=== PATIENT | male | born 1940 | race African-American/Black ===

== ENCOUNTER 2017-07-31 07:00 | Observation (INO) ==
[2017-07-31] MEDS ORDERED: ALUMINUM/MAGNES/SIMETH MAX STR 30 ML UDCUP PO PRN (09:35)
[2017-07-31] MEDS ORDERED: BENZTROPINE 2 MG/2 ML AMP IV PRN (09:35)
[2017-07-31] MEDS ORDERED: ALPRAZolam 0.25 MG TABLET PO PRN (09:35)
[2017-07-31] MEDS ORDERED: LOPERAMIDE 2 MG CAPSULE PO PRN ×2 (09:35)
[2017-07-31] MEDS ORDERED: guaiFENesin 200 MG/10 ML UDCUP PO PRN (09:35)
[2017-07-31] MEDS ORDERED: ONDANSETRON 4 MG/2 ML VIAL IV PRN (09:35)
[2017-07-31] MEDS ORDERED: MAGNESIUM HYDROXIDE SUSP 30 ML UDCUP PO PRN (09:35)
[2017-07-31] MEDS ORDERED: MYLANTA/LIDO VISC 2:1 300 ML BOTTLE SWISH/SWAL PRN (09:35)
[2017-07-31] MEDS ORDERED: traMADol 50 MG TABLET PO PRN (09:35)
[2017-07-31] MEDS ORDERED: MYLANTA/LIDO VISC 2:1 300 ML BOTTLE SWISH/SPIT PRN (09:35)
[2017-07-31] MEDS ORDERED: chlorproMAZINE INJ 25 MG in SODIUM CHLORIDE 0.9% 100 ML IV PRN (09:35)
[2017-07-31] MEDS ORDERED: PROMETHAZINE INJ 25 MG in SODIUM CHLORIDE 0.9% 50 ML IV PRN (09:35)
[2017-07-31] MEDS ORDERED: diphenhydrAMINE CAP 25 MG CAPSULE PO PRN (09:35)
[2017-07-31] MEDS ORDERED: chlorproMAZINE INJ 50 MG in SODIUM CHLORIDE 0.9% 100 ML IV PRN (09:35)
[2017-07-31] MEDS ORDERED: chlorproMAZINE 25 MG TABLET PO PRN (09:35)
[2017-07-31] MEDS ORDERED: TEMAZEPAM 7.5 MG CAPSULE PO PRN (09:35)
[2017-07-31] MEDS ORDERED: LACTULOSE 20 GM/30 ML UDCUP PO PRN (09:35)
[2017-07-31] MEDS ORDERED: ACETAMINOPHEN 325 MG TABLET PO PRN (09:35)
[2017-07-31] MEDS ORDERED: DEXAMETHASONE 10 MG/1 ML VIAL IV ONE (10:30)
[2017-07-31] MEDS ORDERED: DEXTROSE 5% IV ONE (11:30)
[2017-07-31] MEDS ORDERED: FLUOROURACIL IV ONE (11:30)
[2017-07-31] MEDS ORDERED: IRINOTECAN IV ONE (11:30)
[2017-07-31] MEDS ORDERED: LEUCOVORIN INJ 600 MG in DEXTROSE 5% 250 ML IV ONE (11:30)
[2017-07-31] MEDS ORDERED: PANITUMUMAB IV ONE (11:30)
[2017-07-31] MEDS ORDERED: SODIUM CHLORIDE 0.9% IV ONE (11:30)
[2017-07-31] MEDS: GRANISETRON 1 MG/1 ML VIAL IV SCH (11:38)
[2017-07-31] MEDS: FLUOROURACIL 1,500 MG in SODIUM CHLORIDE 0.9% 1,000 ML IV SCH (15:28)
[2017-08-01 09:12] LABS: Basophils % 0.2 % (0.0-0.8); Eosinophils % 0.2 % (0.00-10.9); Hematocrit 22.6 VOL% (42.0-52.0); Hemoglobin 7.1 GM/DL (14.0-18.0); Immature Granulocytes % 0.4 %; Immature Granulocytes Absolute 0.02 #; Lymphocytes # 0.8 10*3/uL (1.4-4.0); Lymphocytes % 15.3 % (21.2-54.2); Mean Corpuscular HGB Conc 31.4 GM/DL (32-36); Mean Corpuscular Hemoglobin 23 PG (27-34); Mean Corpuscular Volume 71.7 FL (87-102); Mean Platelet Volume 9.1 FL (9.6-12.0); Monocytes # 0.3 10*3/uL (0.11-0.8); Monocytes % 6.1 % (1.7-12.7); Neutrophils # 4.2 10*3/uL (1.4-7.4); Neutrophils % 77.8 % (38.7-73.9); Platelet Count 291 T/CUMM (130-400); Red Blood Count 3.15 MC/CUMM (3.8-5.5); Red Cell Distribution Width 18.3 % (9.3-17.3); White Blood Count 5.4 T/CUMM (4-12)
[2017-08-01] MEDS: GRANISETRON 1 MG/1 ML VIAL IV SCH (09:28)
[2017-08-01 09:33] LABS: Alanine Aminotransferase 10 U/L (16-61); Alkaline Phosphatase 137 U/L (45-117); Aspartate Amino Transferase 25 U/L (0-37); Bilirubin,Total < 0.39 MG/DL (0.2-1.0); Blood Urea Nitrogen 12 MG/DL (7-18); Calcium 7.8 MG/DL (8.5-10.1); Glucose 122 MG/DL (74-106); Osmolality,Calculated 273.8 MOS/KG (273-304); Potassium 3.4 MMOL/L (3.5-5.1); Sodium 137 MMOL/L (136-145); Total Protein 5.2 G/DL (6.4-8.3)
[2017-08-01] MEDS ORDERED: SODIUM CHLORIDE 0.9% 1,000 ML IV PRN (09:36)
[2017-08-01] MEDS: FLUOROURACIL 1,500 MG in SODIUM CHLORIDE 0.9% 1,000 ML IV SCH (14:40)
[2017-08-02 07:43] LABS: Basophils % 0.3 % (0.0-0.8); Eosinophils % 0.8 % (0.00-10.9); Hemoglobin 9.1 GM/DL (14.0-18.0); Immature Granulocytes % 0.3 %; Immature Granulocytes Absolute 0.01 #; Lymphocytes # 0.7 10*3/uL (1.4-4.0); Lymphocytes % 16.5 % (21.2-54.2); Mean Corpuscular HGB Conc 31.4 GM/DL (32-36); Mean Corpuscular Hemoglobin 24 PG (27-34); Mean Corpuscular Volume 75.9 FL (87-102); Mean Platelet Volume 9.2 FL (9.6-12.0); Monocytes # 0.2 10*3/uL (0.11-0.8); Monocytes % 3.8 % (1.7-12.7); Neutrophils # 3.1 10*3/uL (1.4-7.4); Neutrophils % 78.3 % (38.7-73.9); Platelet Count 304 T/CUMM (130-400); Red Blood Count 3.82 MC/CUMM (3.8-5.5); Red Cell Distribution Width 18.3 % (9.3-17.3)
[2017-08-02 08:32] VITALS: BP 155/88
[2017-08-02] MEDS: GRANISETRON 1 MG/1 ML VIAL IV SCH (09:31)
[2017-08-02] MEDS ORDERED: DEXAMETHASONE 10 MG/1 ML VIAL IV ONE (12:30)
[2017-08-02] MEDS ORDERED: HEPARIN LOCK FLUSH 500 UNIT/5 ML SYRINGE IV ONE (13:58)
== END 2017-08-02 14:56 | disposition home or self-care (01) ==
LOC: N.4E
PROVIDERS: ADMIT Specialist; ATTEND Specialist

== ENCOUNTER 2017-08-12 08:00 | Observation (INO) ==
[2017-08-12] MEDS ORDERED: ACETAMINOPHEN 325 MG TABLET PO PRN (08:55)
[2017-08-12] MEDS ORDERED: LACTULOSE 20 GM/30 ML UDCUP PO PRN (08:55)
[2017-08-12] MEDS ORDERED: ALUMINUM/MAGNES/SIMETH MAX STR 30 ML UDCUP PO PRN (08:55)
[2017-08-12] MEDS ORDERED: diphenhydrAMINE CAP 25 MG CAPSULE PO PRN (08:55)
[2017-08-12] MEDS ORDERED: ONDANSETRON 4 MG/2 ML VIAL IV PRN (08:55)
[2017-08-12] MEDS ORDERED: PROMETHAZINE INJ 25 MG in SODIUM CHLORIDE 0.9% 50 ML IV PRN (08:55)
[2017-08-12] MEDS ORDERED: MYLANTA/LIDO VISC 2:1 300 ML BOTTLE SWISH/SWAL PRN (08:55)
[2017-08-12] MEDS ORDERED: MYLANTA/LIDO VISC 2:1 300 ML BOTTLE SWISH/SPIT PRN (08:55)
[2017-08-12] MEDS ORDERED: MAGNESIUM HYDROXIDE SUSP 30 ML UDCUP PO PRN (08:55)
[2017-08-12] MEDS ORDERED: chlorproMAZINE INJ 25 MG in SODIUM CHLORIDE 0.9% 100 ML IV PRN (08:55)
[2017-08-12] MEDS ORDERED: traMADol 50 MG TABLET PO PRN (08:55)
[2017-08-12] MEDS ORDERED: chlorproMAZINE 25 MG TABLET PO PRN (08:55)
[2017-08-12] MEDS ORDERED: BENZTROPINE 2 MG/2 ML AMP IV PRN (08:55)
[2017-08-12] MEDS ORDERED: TEMAZEPAM 7.5 MG CAPSULE PO PRN (08:55)
[2017-08-12] MEDS ORDERED: LOPERAMIDE 2 MG CAPSULE PO PRN ×2 (08:55)
[2017-08-12] MEDS ORDERED: guaiFENesin 200 MG/10 ML UDCUP PO PRN (08:55)
[2017-08-12] MEDS ORDERED: ALPRAZolam 0.25 MG TABLET PO PRN (08:55)
[2017-08-12] MEDS ORDERED: chlorproMAZINE INJ 50 MG in SODIUM CHLORIDE 0.9% 100 ML IV PRN (08:55)
[2017-08-12] MEDS ORDERED: GRANISETRON 1 MG/1 ML VIAL IV SCH (09:00)
[2017-08-12 09:30] LABS: Eosinophils % 0.4 % (0.00-10.9); Hematocrit 30.1 VOL% (42.0-52.0); Hemoglobin 9.3 GM/DL (14.0-18.0); Immature Granulocytes % 0.8 %; Immature Granulocytes Absolute 0.02 #; Lymphocytes # 0.7 10*3/uL (1.4-4.0); Lymphocytes % 25.7 % (21.2-54.2); Mean Corpuscular HGB Conc 30.9 GM/DL (32-36); Mean Corpuscular Hemoglobin 24 PG (27-34); Mean Corpuscular Volume 76.8 FL (87-102); Monocytes # 0.2 10*3/uL (0.11-0.8); Monocytes % 8.3 % (1.7-12.7); Neutrophils # 1.6 10*3/uL (1.4-7.4); Neutrophils % 64.8 % (38.7-73.9); Platelet Count 228 T/CUMM (130-400); Red Blood Count 3.92 MC/CUMM (3.8-5.5); Red Cell Distribution Width 18.2 % (9.3-17.3); White Blood Count 2.5 T/CUMM (4-12)
[2017-08-12 10:13] LABS: Alanine Aminotransferase 15 U/L (16-61); Albumin 2.9 G/DL (3.4-5.0); Alkaline Phosphatase 123 U/L (45-117); Aspartate Amino Transferase 16 U/L (0-37); Bilirubin,Total < 0.39 MG/DL (0.2-1.0); Blood Urea Nitrogen 9 MG/DL (7-18); Calcium 8.2 MG/DL (8.5-10.1); Glucose 78 MG/DL (74-106); Osmolality,Calculated 272.7 MOS/KG (273-304); Potassium 3.1 MMOL/L (3.5-5.1); Sodium 138 MMOL/L (136-145); Total Protein 6.7 G/DL (6.4-8.3); Uric Acid 2.5 MG/DL (3.5-7.2)
[2017-08-12] MEDS ORDERED: DEXTROSE 5% IV ONE (11:00)
[2017-08-12] MEDS ORDERED: PANITUMUMAB 400 MG in SODIUM CHLORIDE 0.9% 100 ML IV ONE (11:00)
[2017-08-12] MEDS ORDERED: IRINOTECAN IV ONE (11:00)
[2017-08-12] MEDS ORDERED: LEUCOVORIN INJ 600 MG in DEXTROSE 5% 250 ML IV ONE (11:00)
[2017-08-12] MEDS ORDERED: FLUOROURACIL IV ONE (11:00)
[2017-08-12] MEDS ORDERED: DEXAMETHASONE 10 MG/1 ML VIAL IV SCH (11:00)
[2017-08-12] MEDS: POTASSIUM CHLORIDE 20 MEQ TABLET PO SCH ×2 (11:02→20:22)
[2017-08-12] MEDS: MAGNESIUM CHLORIDE 64 MG TABLET PO SCH ×2 (11:02→20:22)
[2017-08-12] MEDS: FLUOROURACIL 1,500 MG in SODIUM CHLORIDE 0.9% 1,000 ML IV SCH (15:41)
[2017-08-12 21:07] LABS: Apearance,Urine CLEAR (Clear); Bilirubin,Urine Negative (Negative); Blood, Urine Negative (Negative); Glucose,Urine (UA) Negative (Negative); Ketones,Urine Negative (Negative); Mucus,Urine Occasional /LPF (Occasional); Nitrite,Urine Negative (Negative); Protein,Urine Negative; Urine Color Yellow (Yellow); Urine Specific Gravity 1.008 (1.001-1.035); Urine Urobilinogen < 2.0 EU/DL (0.2-1.0)
[2017-08-13 04:58] LABS: Hemoglobin 8.2 GM/DL (14.0-18.0); Immature Granulocytes % 0.4 %; Immature Granulocytes Absolute 0.01 #; Lymphocytes # 0.7 10*3/uL (1.4-4.0); Lymphocytes % 25.1 % (21.2-54.2); Mean Corpuscular HGB Conc 31.5 GM/DL (32-36); Mean Corpuscular Hemoglobin 24 PG (27-34); Mean Corpuscular Volume 76.7 FL (87-102); Mean Platelet Volume 8.7 FL (9.6-12.0); Monocytes # 0.3 10*3/uL (0.11-0.8); Monocytes % 12.5 % (1.7-12.7); Neutrophils # 1.6 10*3/uL (1.4-7.4); Platelet Count 212 T/CUMM (130-400); Red Blood Count 3.39 MC/CUMM (3.8-5.5); Red Cell Distribution Width 17.8 % (9.3-17.3); White Blood Count 2.6 T/CUMM (4-12)
[2017-08-13 05:21] LABS: Band Neutrophils 2 % (0-10); Lymphocytes 24 % (20-55); Microcytosis 1+; Segmented Neutrophils 66 % (50-85); Total Cells Counted 100
[2017-08-13 05:22] LABS: Hypochromasia 1+; Ovalocytes Slight; Platelet Estimate Adequate
[2017-08-13 05:30] LABS: Albumin 2.4 G/DL (3.4-5.0); Bilirubin,Total 0.4 MG/DL (0.2-1.0); Calcium 7.9 MG/DL (8.5-10.1); Osmolality,Calculated 275.5 MOS/KG (273-304); Potassium 3.2 MMOL/L (3.5-5.1); Total Protein 5.9 G/DL (6.4-8.3)
[2017-08-13] MEDS: MAGNESIUM CHLORIDE 64 MG TABLET PO SCH ×2 (08:36→20:02)
[2017-08-13] MEDS: POTASSIUM CHLORIDE 20 MEQ TABLET PO SCH ×2 (08:36→20:04)
[2017-08-13] MEDS: GRANISETRON 1 MG/1 ML VIAL IV SCH (08:37)
[2017-08-13] MEDS: FLUOROURACIL 1,500 MG in SODIUM CHLORIDE 0.9% 1,000 ML IV SCH (13:23)
[2017-08-14] MEDS: GRANISETRON 1 MG/1 ML VIAL IV SCH (09:36)
[2017-08-14] MEDS: MAGNESIUM CHLORIDE 64 MG TABLET PO SCH (09:36)
[2017-08-14] MEDS: POTASSIUM CHLORIDE 20 MEQ TABLET PO SCH (09:36)
[2017-08-14] MEDS ORDERED: HEPARIN LOCK FLUSH 500 UNIT/5 ML SYRINGE IV PRN (11:36)
[2017-08-14 12:35] VITALS: BP 134/72
== END 2017-08-14 12:30 | disposition home or self-care (01) ==
LOC: N.4E
PROVIDERS: ADMIT Specialist; ATTEND Specialist

== ENCOUNTER 2017-08-26 07:00 | Observation (INO) ==
[2017-08-26] MEDS ORDERED: ALPRAZolam 0.25 MG TABLET PO PRN (08:53)
[2017-08-26] MEDS ORDERED: traMADol 50 MG TABLET PO PRN (08:53)
[2017-08-26] MEDS ORDERED: chlorproMAZINE INJ 50 MG in SODIUM CHLORIDE 0.9% 100 ML IV PRN (08:53)
[2017-08-26] MEDS ORDERED: diphenhydrAMINE CAP 25 MG CAPSULE PO PRN (08:53)
[2017-08-26] MEDS ORDERED: MYLANTA/LIDO VISC 2:1 300 ML BOTTLE SWISH/SPIT PRN (08:53)
[2017-08-26] MEDS ORDERED: chlorproMAZINE INJ 25 MG in SODIUM CHLORIDE 0.9% 100 ML IV PRN (08:53)
[2017-08-26] MEDS ORDERED: MYLANTA/LIDO VISC 2:1 300 ML BOTTLE SWISH/SWAL PRN (08:53)
[2017-08-26] MEDS ORDERED: ACETAMINOPHEN 325 MG TABLET PO PRN (08:53)
[2017-08-26] MEDS ORDERED: ALUMINUM/MAGNES/SIMETH MAX STR 30 ML UDCUP PO PRN (08:53)
[2017-08-26] MEDS ORDERED: MAGNESIUM HYDROXIDE SUSP 30 ML UDCUP PO PRN (08:53)
[2017-08-26] MEDS ORDERED: TEMAZEPAM 7.5 MG CAPSULE PO PRN (08:53)
[2017-08-26] MEDS ORDERED: chlorproMAZINE 25 MG TABLET PO PRN (08:53)
[2017-08-26] MEDS ORDERED: LOPERAMIDE 2 MG CAPSULE PO PRN ×2 (08:53)
[2017-08-26] MEDS ORDERED: ONDANSETRON 4 MG/2 ML VIAL IV PRN (08:53)
[2017-08-26] MEDS ORDERED: LACTULOSE 20 GM/30 ML UDCUP PO PRN (08:53)
[2017-08-26] MEDS ORDERED: BENZTROPINE 2 MG/2 ML AMP IV PRN (08:53)
[2017-08-26] MEDS ORDERED: PROMETHAZINE INJ 25 MG in SODIUM CHLORIDE 0.9% 50 ML IV PRN (08:53)
[2017-08-26] MEDS ORDERED: guaiFENesin 200 MG/10 ML UDCUP PO PRN (08:53)
[2017-08-26 09:01] LABS: Basophils % 0.4 % (0.0-0.8); Eosinophils % 0.4 % (0.00-10.9); Hematocrit 28.4 VOL% (42.0-52.0); Hemoglobin 8.9 GM/DL (14.0-18.0); Immature Granulocytes % 0.7 %; Immature Granulocytes Absolute 0.02 #; Lymphocytes # 0.9 10*3/uL (1.4-4.0); Lymphocytes % 33.1 % (21.2-54.2); Mean Corpuscular HGB Conc 31.3 GM/DL (32-36); Mean Corpuscular Hemoglobin 24 PG (27-34); Mean Corpuscular Volume 77.2 FL (87-102); Mean Platelet Volume 8.3 FL (9.6-12.0); Monocytes # 0.6 10*3/uL (0.11-0.8); Monocytes % 20.3 % (1.7-12.7); Neutrophils # 1.3 10*3/uL (1.4-7.4); Neutrophils % 45.1 % (38.7-73.9); Platelet Count 218 T/CUMM (130-400); Red Blood Count 3.68 MC/CUMM (3.8-5.5); Red Cell Distribution Width 18.8 % (9.3-17.3); White Blood Count 2.8 T/CUMM (4-12)
[2017-08-26 09:17] LABS: Alanine Aminotransferase 10 U/L (16-61); Alkaline Phosphatase 92 U/L (45-117); Aspartate Amino Transferase 15 U/L (0-37); Bilirubin,Total < 0.39 MG/DL (0.2-1.0); Blood Urea Nitrogen 7 MG/DL (7-18); Calcium 9.1 MG/DL (8.5-10.1); Glucose 98 MG/DL (74-106); Osmolality,Calculated 274.5 MOS/KG (273-304); Sodium 139 MMOL/L (136-145); Total Protein 6.7 G/DL (6.4-8.3); Uric Acid 2.9 MG/DL (3.5-7.2)
[2017-08-26 09:19] LABS: Band Neutrophils 2 % (0-10); Eosinophils 1 % (0-10); Hypochromasia 1+; Lymphocytes 37 % (20-55); Segmented Neutrophils 44 % (50-85); Total Cells Counted 100
[2017-08-26 09:20] LABS: Microcytosis 1+; Ovalocytes Slight; Polychromasia Slight; Potassium 2.3 MMOL/L (3.5-5.1)
[2017-08-26 09:21] LABS: Platelet Estimate Normal
[2017-08-26] MEDS ORDERED: IRINOTECAN IV ONE (09:30)
[2017-08-26] MEDS ORDERED: LEUCOVORIN INJ 600 MG in DEXTROSE 5% 250 ML IV ONE (09:30)
[2017-08-26] MEDS ORDERED: DEXTROSE 5% IV ONE (09:30)
[2017-08-26] MEDS ORDERED: FLUOROURACIL IV ONE (09:30)
[2017-08-26] MEDS ORDERED: DEXAMETHASONE 10 MG/1 ML VIAL IV SCH (09:30)
[2017-08-26] MEDS ORDERED: PANITUMUMAB 400 MG in SODIUM CHLORIDE 0.9% 100 ML IV ONE (09:30)
[2017-08-26] MEDS: GRANISETRON 1 MG/1 ML VIAL IV SCH (10:12)
[2017-08-26] MEDS: MAGNESIUM CHLORIDE 64 MG TABLET PO SCH ×2 (10:14→21:38)
[2017-08-26] MEDS: POTASSIUM CHLORIDE 20 MEQ TABLET PO SCH ×2 (10:14→21:39)
[2017-08-26] MEDS: FLUOROURACIL 1,500 MG in SODIUM CHLORIDE 0.9% 1,000 ML IV SCH (14:50)
[2017-08-27 00:18] LABS: Apearance,Urine CLEAR (Clear); Bilirubin,Urine Negative (Negative); Blood, Urine Negative (Negative); Glucose,Urine (UA) Negative (Negative); Ketones,Urine Negative (Negative); Mucus,Urine Occasional /LPF (Occasional); Nitrite,Urine Negative (Negative); Protein,Urine Negative; RBC,Urine 1 /HPF (0-4); Squamous Epithelial Cell,Urine Occasional /HPF (0-10); Urine Color Yellow (Yellow); Urine Urobilinogen < 2.0 EU/DL (0.2-1.0); WBC,Urine <1 /HPF (0-6)
[2017-08-27 04:44] LABS: Hematocrit 25.7 VOL% (42.0-52.0); Hemoglobin 8.2 GM/DL (14.0-18.0); Immature Granulocytes % 0.4 %; Immature Granulocytes Absolute 0.01 #; Lymphocytes # 0.7 10*3/uL (1.4-4.0); Lymphocytes % 25.1 % (21.2-54.2); Mean Corpuscular HGB Conc 31.9 GM/DL (32-36); Mean Corpuscular Hemoglobin 24 PG (27-34); Mean Corpuscular Volume 76.5 FL (87-102); Mean Platelet Volume 8.7 FL (9.6-12.0); Monocytes # 0.5 10*3/uL (0.11-0.8); Monocytes % 17.8 % (1.7-12.7); Neutrophils # 1.6 10*3/uL (1.4-7.4); Neutrophils % 56.7 % (38.7-73.9); Platelet Count 177 T/CUMM (130-400); Red Blood Count 3.36 MC/CUMM (3.8-5.5); Red Cell Distribution Width 18.6 % (9.3-17.3); White Blood Count 2.8 T/CUMM (4-12)
[2017-08-27 05:16] LABS: Band Neutrophils 2 % (0-10); Giant Platelets Few; Hypochromasia 1+; Lymphocytes 28 % (20-55); Ovalocytes Slight; Platelet Estimate Normal; Segmented Neutrophils 57 % (50-85); Total Cells Counted 100
[2017-08-27 05:17] LABS: Microcytosis 1+
[2017-08-27 05:30] LABS: Calcium 8.3 MG/DL (8.5-10.1); Osmolality,Calculated 276.5 MOS/KG (273-304); Potassium 2.8 MMOL/L (3.5-5.1)
[2017-08-27] MEDS: MAGNESIUM CHLORIDE 64 MG TABLET PO SCH ×2 (08:43→20:35)
[2017-08-27] MEDS: POTASSIUM CHLORIDE 20 MEQ TABLET PO SCH ×2 (08:43→20:35)
[2017-08-27] MEDS: GRANISETRON 1 MG/1 ML VIAL IV SCH (08:43)
[2017-08-27] MEDS ORDERED: SODIUM CHLORIDE 0.9% 1,000 ML IV PRN (08:47)
[2017-08-27] MEDS: FLUOROURACIL 1,500 MG in SODIUM CHLORIDE 0.9% 1,000 ML IV SCH (13:16)
[2017-08-28 05:36] LABS: Basophils % 0.5 % (0.0-0.8); Hematocrit 33.7 VOL% (42.0-52.0); Hemoglobin 11.2 GM/DL (14.0-18.0); Immature Granulocytes % 0.5 %; Immature Granulocytes Absolute 0.01 #; Lymphocytes # 0.9 10*3/uL (1.4-4.0); Lymphocytes % 44.4 % (21.2-54.2); Mean Corpuscular HGB Conc 33.2 GM/DL (32-36); Mean Corpuscular Hemoglobin 26 PG (27-34); Mean Corpuscular Volume 77.3 FL (87-102); Mean Platelet Volume 8.7 FL (9.6-12.0); Monocytes # 0.2 10*3/uL (0.11-0.8); Monocytes % 10.1 % (1.7-12.7); Neutrophils # 0.9 10*3/uL (1.4-7.4); Neutrophils % 43.5 % (38.7-73.9); Platelet Count 181 T/CUMM (130-400); Red Blood Count 4.36 MC/CUMM (3.8-5.5); White Blood Count 2.1 T/CUMM (4-12)
[2017-08-28 06:07] LABS: Albumin 2.3 G/DL (3.4-5.0); Bilirubin,Total 1.1 MG/DL (0.2-1.0); Calcium 8.3 MG/DL (8.5-10.1); Potassium 2.6 MMOL/L (3.5-5.1); Total Protein 5.7 G/DL (6.4-8.3)
[2017-08-28 06:08] LABS: Hypochromasia 1+; Microcytosis 1+; Ovalocytes Slight; Platelet Estimate Adequate; Target Cells Slight
[2017-08-28] MEDS: POTASSIUM CHLORIDE 20 MEQ TABLET PO SCH (08:26)
[2017-08-28] MEDS: MAGNESIUM CHLORIDE 64 MG TABLET PO SCH (08:26)
[2017-08-28] MEDS: GRANISETRON 1 MG/1 ML VIAL IV SCH (08:26)
[2017-08-28 08:54] VITALS: BP 149/84
[2017-08-28] MEDS ORDERED: HEPARIN LOCK FLUSH 500 UNIT/5 ML SYRINGE IV PRN (10:08)
== END 2017-08-28 12:20 | disposition home or self-care (01) ==
LOC: N.4E
PROVIDERS: ADMIT Specialist; ATTEND Specialist

== ENCOUNTER 2017-09-16 07:00 | Observation (INO) ==
[2017-09-16 08:22] LABS: Basophils % 0.6 % (0.0-0.8); Eosinophils # 0.1 10*3/uL (0.0-0.87); Hematocrit 32.4 VOL% (42.0-52.0); Hemoglobin 10.8 GM/DL (14.0-18.0); Immature Granulocytes % 5.6 %; Immature Granulocytes Absolute 0.29 #; Lymphocytes # 1.4 10*3/uL (1.4-4.0); Lymphocytes % 26.7 % (21.2-54.2); Mean Corpuscular HGB Conc 33.3 GM/DL (32-36); Mean Corpuscular Hemoglobin 27 PG (27-34); Mean Corpuscular Volume 79.8 FL (87-102); Mean Platelet Volume 8.7 FL (9.6-12.0); Neutrophils # 2.4 10*3/uL (1.4-7.4); Neutrophils % 47.1 % (38.7-73.9); Platelet Count 205 T/CUMM (130-400); Red Blood Count 4.06 MC/CUMM (3.8-5.5); Red Cell Distribution Width 20.3 % (9.3-17.3); White Blood Count 5.2 T/CUMM (4-12)
[2017-09-16 08:49] LABS: Alanine Aminotransferase 19 U/L (16-61); Alkaline Phosphatase 97 U/L (45-117); Aspartate Amino Transferase 16 U/L (0-37); Bilirubin,Total < 0.39 MG/DL (0.2-1.0); Blood Urea Nitrogen 9 MG/DL (7-18); Calcium 8.6 MG/DL (8.5-10.1); Glucose 72 MG/DL (74-106); Osmolality,Calculated 274.5 MOS/KG (273-304); Potassium 3.9 MMOL/L (3.5-5.1); Sodium 139 MMOL/L (136-145); Total Protein 6.6 G/DL (6.4-8.3)
[2017-09-16 08:50] LABS: Eosinophils 1 % (0-10); Lymphocytes 27 % (20-55); Segmented Neutrophils 59 % (50-85); Total Cells Counted 100
[2017-09-16 08:51] LABS: Hypochromasia 1+; Microcytosis 1+; Ovalocytes Slight
[2017-09-16 08:53] LABS: Platelet Estimate Normal
[2017-09-16] MEDS ORDERED: MYLANTA/LIDO VISC 2:1 300 ML BOTTLE SWISH/SWAL PRN (09:54)
[2017-09-16] MEDS ORDERED: PROMETHAZINE INJ 25 MG in SODIUM CHLORIDE 0.9% 50 ML IV PRN (09:54)
[2017-09-16] MEDS ORDERED: ONDANSETRON 4 MG/2 ML VIAL IV PRN (09:54)
[2017-09-16] MEDS ORDERED: BENZTROPINE 2 MG/2 ML AMP IV PRN (09:54)
[2017-09-16] MEDS ORDERED: LACTULOSE 20 GM/30 ML UDCUP PO PRN (09:54)
[2017-09-16] MEDS ORDERED: ALUMINUM/MAGNES/SIMETH MAX STR 30 ML UDCUP PO PRN (09:54)
[2017-09-16] MEDS ORDERED: MAGNESIUM HYDROXIDE SUSP 30 ML UDCUP PO PRN (09:54)
[2017-09-16] MEDS ORDERED: MYLANTA/LIDO VISC 2:1 300 ML BOTTLE SWISH/SPIT PRN (09:54)
[2017-09-16] MEDS ORDERED: ACETAMINOPHEN 325 MG TABLET PO PRN (09:54)
[2017-09-16] MEDS ORDERED: LOPERAMIDE 2 MG CAPSULE PO PRN ×2 (09:54)
[2017-09-16] MEDS ORDERED: guaiFENesin 200 MG/10 ML UDCUP PO PRN (09:54)
[2017-09-16] MEDS ORDERED: TEMAZEPAM 7.5 MG CAPSULE PO PRN (09:54)
[2017-09-16] MEDS ORDERED: ALPRAZolam 0.25 MG TABLET PO PRN (09:54)
[2017-09-16] MEDS ORDERED: traMADol 50 MG TABLET PO PRN (09:54)
[2017-09-16] MEDS ORDERED: chlorproMAZINE INJ 50 MG in SODIUM CHLORIDE 0.9% 100 ML IV PRN (09:54)
[2017-09-16] MEDS ORDERED: diphenhydrAMINE CAP 25 MG CAPSULE PO PRN (09:54)
[2017-09-16] MEDS ORDERED: chlorproMAZINE 25 MG TABLET PO PRN (09:54)
[2017-09-16] MEDS ORDERED: chlorproMAZINE INJ 25 MG in SODIUM CHLORIDE 0.9% 100 ML IV PRN (09:54)
[2017-09-16] MEDS ORDERED: LEUCOVORIN INJ 600 MG in DEXTROSE 5% 250 ML IV ONE (10:00)
[2017-09-16] MEDS ORDERED: DEXTROSE 5% IV ONE (10:00)
[2017-09-16] MEDS ORDERED: DEXAMETHASONE 10 MG/1 ML VIAL IV SCH (10:00)
[2017-09-16] MEDS ORDERED: FLUOROURACIL IV ONE (10:00)
[2017-09-16] MEDS ORDERED: IRINOTECAN IV ONE (10:00)
[2017-09-16] MEDS ORDERED: PANITUMUMAB 400 MG in SODIUM CHLORIDE 0.9% 100 ML IV ONE (10:00)
[2017-09-16] MEDS ORDERED: DEXAMETHASONE 10 MG/1 ML VIAL IV ONE (10:30)
[2017-09-16] MEDS: GRANISETRON 1 MG/1 ML VIAL IV SCH (10:32)
[2017-09-16 13:50] LABS: Apearance,Urine CLEAR (Clear); Bilirubin,Urine Negative (Negative); Blood, Urine Negative (Negative); Glucose,Urine (UA) Negative (Negative); Ketones,Urine Negative (Negative); Mucus,Urine Occasional /LPF (Occasional); Nitrite,Urine Negative (Negative); Protein,Urine Negative; RBC,Urine <1 /HPF (0-4); Urine Color Straw (Yellow); Urine Specific Gravity 1.009 (1.001-1.035); Urine Urobilinogen < 2.0 EU/DL (0.2-1.0); WBC,Urine <1 /HPF (0-6)
[2017-09-16] MEDS: FLUOROURACIL 1,500 MG in SODIUM CHLORIDE 0.9% 1,000 ML IV SCH (14:33)
[2017-09-16] MEDS: POTASSIUM CHLORIDE 20 MEQ TABLET PO SCH (21:02)
[2017-09-16] MEDS: MAGNESIUM CHLORIDE 64 MG TABLET PO SCH (21:02)
[2017-09-17] MEDS: MAGNESIUM CHLORIDE 64 MG TABLET PO SCH ×2 (08:24→20:22)
[2017-09-17] MEDS: FERROUS SULFATE 325 MG TABLET PO SCH (08:24)
[2017-09-17] MEDS: POTASSIUM CHLORIDE 20 MEQ TABLET PO SCH ×2 (08:24→20:22)
[2017-09-17] MEDS: GRANISETRON 1 MG/1 ML VIAL IV SCH (08:24)
[2017-09-17] MEDS: FLUOROURACIL 1,500 MG in SODIUM CHLORIDE 0.9% 1,000 ML IV SCH (12:44)
[2017-09-18 05:02] LABS: Basophils % 0.3 % (0.0-0.8); Eosinophils # 0.1 10*3/uL (0.0-0.87); Hematocrit 32.1 VOL% (42.0-52.0); Hemoglobin 10.5 GM/DL (14.0-18.0); Immature Granulocytes % 0.5 %; Immature Granulocytes Absolute 0.03 #; Lymphocytes # 1.1 10*3/uL (1.4-4.0); Mean Corpuscular HGB Conc 32.7 GM/DL (32-36); Mean Corpuscular Hemoglobin 26 PG (27-34); Mean Corpuscular Volume 78.9 FL (87-102); Mean Platelet Volume 8.9 FL (9.6-12.0); Monocytes # 0.7 10*3/uL (0.11-0.8); Monocytes % 11.5 % (1.7-12.7); Neutrophils # 4.1 10*3/uL (1.4-7.4); Neutrophils % 68.7 % (38.7-73.9); Platelet Count 178 T/CUMM (130-400); Red Blood Count 4.07 MC/CUMM (3.8-5.5); Red Cell Distribution Width 20.3 % (9.3-17.3)
[2017-09-18] MEDS: MAGNESIUM CHLORIDE 64 MG TABLET PO SCH (08:25)
[2017-09-18] MEDS: GRANISETRON 1 MG/1 ML VIAL IV SCH (08:25)
[2017-09-18] MEDS: POTASSIUM CHLORIDE 20 MEQ TABLET PO SCH (08:25)
[2017-09-18] MEDS: FERROUS SULFATE 325 MG TABLET PO SCH (08:25)
[2017-09-18] MEDS ORDERED: HEPARIN LOCK FLUSH 500 UNIT/5 ML SYRINGE IV ONE (10:35)
[2017-09-18 12:17] VITALS: BP 109/60
== END 2017-09-18 13:05 | disposition home or self-care (01) ==
LOC: N.4E
PROVIDERS: ADMIT Specialist; ATTEND Specialist

== ENCOUNTER 2017-10-06 06:49 | Observation (INO) ==
[2017-10-06 08:05] LABS: Basophils % 0.3 % (0.0-0.8); Eosinophils # 0.1 10*3/uL (0.0-0.87); Eosinophils % 2.1 % (0.00-10.9); Hematocrit 30.7 VOL% (42.0-52.0); Hemoglobin 10.3 GM/DL (14.0-18.0); Immature Granulocytes % 1.2 %; Immature Granulocytes Absolute 0.04 #; Lymphocytes # 0.8 10*3/uL (1.4-4.0); Lymphocytes % 24.9 % (21.2-54.2); Mean Corpuscular HGB Conc 33.6 GM/DL (32-36); Mean Corpuscular Hemoglobin 27 PG (27-34); Mean Corpuscular Volume 80.6 FL (87-102); Mean Platelet Volume 8.6 FL (9.6-12.0); Monocytes % 29.4 % (1.7-12.7); Neutrophils # 1.4 10*3/uL (1.4-7.4); Neutrophils % 42.1 % (38.7-73.9); Platelet Count 170 T/CUMM (130-400); Red Blood Count 3.81 MC/CUMM (3.8-5.5); Red Cell Distribution Width 20.8 % (9.3-17.3); White Blood Count 3.3 T/CUMM (4-12)
[2017-10-06 08:26] LABS: Band Neutrophils 13 % (0-10); Hypochromasia 1+; Lymphocytes 16 % (20-55); Macrocytosis 1+; Platelet Estimate Adequate; Polychromasia Slight; Segmented Neutrophils 46 % (50-85); Target Cells 1+; Total Cells Counted 100
[2017-10-06 08:38] LABS: Alanine Aminotransferase 25 U/L (16-61); Albumin 2.8 G/DL (3.4-5.0); Alkaline Phosphatase 96 U/L (45-117); Aspartate Amino Transferase 21 U/L (0-37); Bilirubin,Total < 0.39 MG/DL (0.2-1.0); Blood Urea Nitrogen 6 MG/DL (7-18); Calcium 8.6 MG/DL (8.5-10.1); Glucose 87 MG/DL (74-106); Osmolality,Calculated 277.3 MOS/KG (273-304); Potassium 3.6 MMOL/L (3.5-5.1); Sodium 141 MMOL/L (136-145); Total Protein 6.1 G/DL (6.4-8.3)
[2017-10-06] MEDS ORDERED: chlorproMAZINE INJ 50 MG in SODIUM CHLORIDE 0.9% 100 ML IV PRN (09:31)
[2017-10-06] MEDS ORDERED: MAGNESIUM HYDROXIDE SUSP 30 ML UDCUP PO PRN (09:31)
[2017-10-06] MEDS ORDERED: ALUMINUM/MAGNES/SIMETH MAX STR 30 ML UDCUP PO PRN (09:31)
[2017-10-06] MEDS ORDERED: MYLANTA/LIDO VISC 2:1 300 ML BOTTLE SWISH/SWAL PRN (09:31)
[2017-10-06] MEDS ORDERED: PROMETHAZINE INJ 25 MG in SODIUM CHLORIDE 0.9% 50 ML IV PRN (09:31)
[2017-10-06] MEDS ORDERED: MYLANTA/LIDO VISC 2:1 300 ML BOTTLE SWISH/SPIT PRN (09:31)
[2017-10-06] MEDS ORDERED: BENZTROPINE 2 MG/2 ML AMP IV PRN (09:31)
[2017-10-06] MEDS ORDERED: traMADol 50 MG TABLET PO PRN (09:31)
[2017-10-06] MEDS ORDERED: LOPERAMIDE 2 MG CAPSULE PO PRN ×2 (09:31)
[2017-10-06] MEDS ORDERED: chlorproMAZINE 25 MG TABLET PO PRN (09:31)
[2017-10-06] MEDS ORDERED: diphenhydrAMINE CAP 25 MG CAPSULE PO PRN (09:31)
[2017-10-06] MEDS ORDERED: LACTULOSE 20 GM/30 ML UDCUP PO PRN (09:31)
[2017-10-06] MEDS ORDERED: ALPRAZolam 0.25 MG TABLET PO PRN (09:31)
[2017-10-06] MEDS ORDERED: ONDANSETRON 4 MG/2 ML VIAL IV PRN (09:31)
[2017-10-06] MEDS ORDERED: ACETAMINOPHEN 325 MG TABLET PO PRN (09:31)
[2017-10-06] MEDS ORDERED: guaiFENesin 200 MG/10 ML UDCUP PO PRN (09:31)
[2017-10-06] MEDS ORDERED: chlorproMAZINE INJ 25 MG in SODIUM CHLORIDE 0.9% 100 ML IV PRN (09:31)
[2017-10-06] MEDS ORDERED: TEMAZEPAM 7.5 MG CAPSULE PO PRN (09:31)
[2017-10-06] MEDS ORDERED: DEXAMETHASONE 10 MG/1 ML VIAL IV ONE (16:00)
[2017-10-06] MEDS ORDERED: GRANISETRON 1 MG/1 ML VIAL IV ONE (16:00)
[2017-10-06] MEDS ORDERED: DEXTROSE 5% IV ONE (16:30)
[2017-10-06] MEDS ORDERED: FLUOROURACIL IV ONE (16:30)
[2017-10-06] MEDS ORDERED: PANITUMUMAB IV ONE (16:30)
[2017-10-06] MEDS ORDERED: SODIUM CHLORIDE 0.9% IV ONE (16:30)
[2017-10-06] MEDS ORDERED: LEUCOVORIN INJ 600 MG in DEXTROSE 5% 250 ML IV ONE (16:30)
[2017-10-06] MEDS ORDERED: IRINOTECAN IV ONE (16:30)
[2017-10-06] MEDS ORDERED: FLUOROURACIL 1,500 MG in SODIUM CHLORIDE 0.9% 1,000 ML IV SCH (18:00)
[2017-10-06] MEDS: POTASSIUM CHLORIDE 20 MEQ TABLET PO SCH (21:01)
[2017-10-06] MEDS: MAGNESIUM CHLORIDE 64 MG TABLET PO SCH (21:01)
[2017-10-07] MEDS: POTASSIUM CHLORIDE 20 MEQ TABLET PO SCH ×2 (09:53→20:39)
[2017-10-07] MEDS: MAGNESIUM CHLORIDE 64 MG TABLET PO SCH ×2 (09:53→20:38)
[2017-10-07] MEDS: FERROUS SULFATE 325 MG TABLET PO SCH (09:53)
[2017-10-08 08:16] VITALS: BP 148/82
[2017-10-08] MEDS: POTASSIUM CHLORIDE 20 MEQ TABLET PO SCH (08:16)
[2017-10-08] MEDS: MAGNESIUM CHLORIDE 64 MG TABLET PO SCH (08:16)
[2017-10-08] MEDS: FERROUS SULFATE 325 MG TABLET PO SCH (08:16)
[2017-10-08] MEDS ORDERED: PEGFILGRASTIM 6 MG/0.6 ML SYRINGE SUBCUT ONE (08:19)
[2017-10-08] MEDS ORDERED: HEPARIN LOCK FLUSH 500 UNIT/5 ML SYRINGE IV ONE (08:51)
== END 2017-10-08 10:25 | disposition home or self-care (01) ==
LOC: N.4E 06:49 → N.4EOUT 06:49 → N.4E 06:57
PROVIDERS: ADMIT Specialist; ATTEND Specialist

== ENCOUNTER 2017-10-27 06:54 | Observation (INO) ==
[2017-10-27 08:14] LABS: Basophils % 0.3 % (0.0-0.8); Eosinophils % 0.1 % (0.00-10.9); Hematocrit 39.7 VOL% (42.0-52.0); Hemoglobin 12.9 GM/DL (14.0-18.0); Immature Granulocytes % 3.1 %; Immature Granulocytes Absolute 0.31 #; Lymphocytes # 1.3 10*3/uL (1.4-4.0); Lymphocytes % 12.7 % (21.2-54.2); Mean Corpuscular HGB Conc 32.5 GM/DL (32-36); Mean Corpuscular Hemoglobin 28 PG (27-34); Mean Corpuscular Volume 86.5 FL (87-102); Mean Platelet Volume 9.2 FL (9.6-12.0); Monocytes # 0.7 10*3/uL (0.11-0.8); Monocytes % 7.2 % (1.7-12.7); Neutrophils # 7.5 10*3/uL (1.4-7.4); Neutrophils % 76.6 % (38.7-73.9); Platelet Count 185 T/CUMM (130-400); Red Blood Count 4.59 MC/CUMM (3.8-5.5); Red Cell Distribution Width 22.1 % (9.3-17.3); White Blood Count 9.9 T/CUMM (4-12)
[2017-10-27] MEDS ORDERED: LACTULOSE 20 GM/30 ML UDCUP PO PRN (08:44)
[2017-10-27] MEDS ORDERED: PROMETHAZINE INJ 25 MG in SODIUM CHLORIDE 0.9% 50 ML IV PRN (08:44)
[2017-10-27] MEDS ORDERED: diphenhydrAMINE CAP 25 MG CAPSULE PO PRN (08:44)
[2017-10-27] MEDS ORDERED: TEMAZEPAM 7.5 MG CAPSULE PO PRN (08:44)
[2017-10-27] MEDS ORDERED: ONDANSETRON 4 MG/2 ML VIAL IV PRN (08:44)
[2017-10-27] MEDS ORDERED: chlorproMAZINE INJ 50 MG in SODIUM CHLORIDE 0.9% 100 ML IV PRN (08:44)
[2017-10-27] MEDS ORDERED: chlorproMAZINE INJ 25 MG in SODIUM CHLORIDE 0.9% 100 ML IV PRN (08:44)
[2017-10-27] MEDS ORDERED: chlorproMAZINE 25 MG TABLET PO PRN (08:44)
[2017-10-27] MEDS ORDERED: traMADol 50 MG TABLET PO PRN (08:44)
[2017-10-27] MEDS ORDERED: MAGNESIUM HYDROXIDE SUSP 30 ML UDCUP PO PRN (08:44)
[2017-10-27] MEDS ORDERED: ALPRAZolam 0.25 MG TABLET PO PRN (08:44)
[2017-10-27] MEDS ORDERED: ACETAMINOPHEN 325 MG TABLET PO PRN (08:44)
[2017-10-27] MEDS ORDERED: ALUMINUM/MAGNES/SIMETH MAX STR 30 ML UDCUP PO PRN (08:44)
[2017-10-27] MEDS ORDERED: LOPERAMIDE 2 MG CAPSULE PO PRN ×2 (08:44)
[2017-10-27] MEDS ORDERED: guaiFENesin 200 MG/10 ML UDCUP PO PRN (08:44)
[2017-10-27] MEDS ORDERED: BENZTROPINE 2 MG/2 ML AMP IV PRN (08:44)
[2017-10-27] MEDS ORDERED: MYLANTA/LIDO VISC 2:1 300 ML BOTTLE SWISH/SWAL PRN (08:44)
[2017-10-27] MEDS ORDERED: MYLANTA/LIDO VISC 2:1 300 ML BOTTLE SWISH/SPIT PRN (08:44)
[2017-10-27 09:03] LABS: Albumin 3.5 G/DL (3.4-5.0); Bilirubin,Total 0.5 MG/DL (0.2-1.0); Calcium 9.3 MG/DL (8.5-10.1); Osmolality,Calculated 272.1 MOS/KG (273-304); Total Protein 7.4 G/DL (6.4-8.3); Uric Acid 4.4 MG/DL (3.5-7.2)
[2017-10-27 09:09] LABS: Anisocytosis 1+; Platelet Estimate Adequate; Poikilocytosis Slight
[2017-10-27] MEDS ORDERED: GRANISETRON 1 MG/1 ML VIAL IV ONE (09:30)
[2017-10-27] MEDS ORDERED: DEXAMETHASONE 10 MG/1 ML VIAL IV ONE (09:30)
[2017-10-27] MEDS ORDERED: PANITUMUMAB IV ONE (10:00)
[2017-10-27] MEDS ORDERED: DEXTROSE 5% IV ONE (10:00)
[2017-10-27] MEDS ORDERED: LEUCOVORIN INJ 600 MG in DEXTROSE 5% 250 ML IV ONE (10:00)
[2017-10-27] MEDS ORDERED: FLUOROURACIL IV ONE (10:00)
[2017-10-27] MEDS ORDERED: IRINOTECAN IV ONE (10:00)
[2017-10-27] MEDS ORDERED: SODIUM CHLORIDE 0.9% IV ONE (10:00)
[2017-10-27] MEDS: FLUOROURACIL 1,500 MG in SODIUM CHLORIDE 0.9% 1,000 ML IV SCH (14:03)
[2017-10-27 15:13] LABS: Apearance,Urine CLEAR (Clear); Bilirubin,Urine Negative (Negative); Blood, Urine Negative (Negative); Glucose,Urine (UA) Negative (Negative); Ketones,Urine Negative (Negative); Mucus,Urine Occasional /LPF (Occasional); Nitrite,Urine Negative (Negative); Protein,Urine Negative; RBC,Urine <1 /HPF (0-4); Urine Color Yellow (Yellow); Urine Specific Gravity 1.012 (1.001-1.035); Urine Urobilinogen < 2.0 EU/DL (0.2-1.0); WBC,Urine 1 /HPF (0-6)
[2017-10-27] MEDS: POTASSIUM CHLORIDE 20 MEQ TABLET PO SCH (21:02)
[2017-10-27] MEDS: MAGNESIUM CHLORIDE 64 MG TABLET PO SCH (21:03)
[2017-10-27] MEDS: DOXYCYCLINE HYCLATE 100 MG CAPSULE PO SCH (21:03)
[2017-10-28] MEDS ORDERED: predniSONE 20 MG TABLET PO SCH (07:30)
[2017-10-28 08:32] VITALS: BP 155/79
[2017-10-28] MEDS: FLUOROURACIL 1,500 MG in SODIUM CHLORIDE 0.9% 1,000 ML IV SCH (08:49)
[2017-10-28] MEDS: DOXYCYCLINE HYCLATE 100 MG CAPSULE PO SCH (08:50)
[2017-10-28] MEDS: MAGNESIUM CHLORIDE 64 MG TABLET PO SCH (08:50)
[2017-10-28] MEDS: POTASSIUM CHLORIDE 20 MEQ TABLET PO SCH (08:50)
[2017-10-28] MEDS ORDERED: HEPARIN LOCK FLUSH 500 UNIT/5 ML SYRINGE IV PRN (08:52)
[2017-10-28] MEDS ORDERED: FERROUS SULFATE 325 MG TABLET PO SCH (09:00)
== END 2017-10-28 12:35 | disposition home or self-care (01) ==
LOC: N.4E → OBSVTOIN 06:54 → SCHINTOOBSV 07:09
PROVIDERS: ADMIT Specialist; ATTEND Specialist

== ENCOUNTER 2017-11-17 07:00 | Observation (INO) ==
[2017-11-17 08:02] LABS: Basophils % 0.6 % (0.0-0.8); Eosinophils # 0.1 10*3/uL (0.0-0.87); Eosinophils % 1.8 % (0.00-10.9); Hematocrit 33.4 VOL% (42.0-52.0); Immature Granulocytes % 0.6 %; Immature Granulocytes Absolute 0.02 #; Lymphocytes # 0.6 10*3/uL (1.4-4.0); Mean Corpuscular HGB Conc 32.9 GM/DL (32-36); Mean Corpuscular Hemoglobin 29 PG (27-34); Mean Corpuscular Volume 89.3 FL (87-102); Mean Platelet Volume 8.5 FL (9.6-12.0); Monocytes # 0.6 10*3/uL (0.11-0.8); Platelet Count 134 T/CUMM (130-400); Red Blood Count 3.74 MC/CUMM (3.8-5.5); Red Cell Distribution Width 16.6 % (9.3-17.3); White Blood Count 3.3 T/CUMM (4-12)
[2017-11-17 08:26] LABS: Band Neutrophils 7 % (0-10); Eosinophils 4 % (0-10); Lymphocytes 17 % (20-55); Segmented Neutrophils 60 % (50-85); Total Cells Counted 100
[2017-11-17 08:27] LABS: Anisocytosis 1+; Macrocytosis Slight; Platelet Estimate Normal
[2017-11-17] MEDS ORDERED: MAGNESIUM HYDROXIDE SUSP 30 ML UDCUP PO PRN (08:41)
[2017-11-17] MEDS ORDERED: MYLANTA/LIDO VISC 2:1 300 ML BOTTLE SWISH/SWAL PRN (08:41)
[2017-11-17] MEDS ORDERED: ALUMINUM/MAGNES/SIMETH MAX STR 30 ML UDCUP PO PRN (08:41)
[2017-11-17] MEDS ORDERED: chlorproMAZINE 25 MG TABLET PO PRN (08:41)
[2017-11-17] MEDS ORDERED: ALPRAZolam 0.25 MG TABLET PO PRN (08:41)
[2017-11-17] MEDS ORDERED: ACETAMINOPHEN 325 MG TABLET PO PRN (08:41)
[2017-11-17] MEDS ORDERED: chlorproMAZINE INJ 50 MG in SODIUM CHLORIDE 0.9% 100 ML IV PRN (08:41)
[2017-11-17] MEDS ORDERED: chlorproMAZINE INJ 25 MG in SODIUM CHLORIDE 0.9% 100 ML IV PRN (08:41)
[2017-11-17] MEDS ORDERED: guaiFENesin 200 MG/10 ML UDCUP PO PRN (08:41)
[2017-11-17] MEDS ORDERED: ONDANSETRON 4 MG/2 ML VIAL IV PRN (08:41)
[2017-11-17] MEDS ORDERED: MYLANTA/LIDO VISC 2:1 300 ML BOTTLE SWISH/SPIT PRN (08:41)
[2017-11-17] MEDS ORDERED: LACTULOSE 20 GM/30 ML UDCUP PO PRN (08:41)
[2017-11-17] MEDS ORDERED: TEMAZEPAM 7.5 MG CAPSULE PO PRN (08:41)
[2017-11-17] MEDS ORDERED: diphenhydrAMINE CAP 25 MG CAPSULE PO PRN (08:41)
[2017-11-17] MEDS ORDERED: traMADol 50 MG TABLET PO PRN (08:41)
[2017-11-17] MEDS ORDERED: BENZTROPINE 2 MG/2 ML AMP IV PRN (08:41)
[2017-11-17] MEDS ORDERED: PROMETHAZINE INJ 25 MG in SODIUM CHLORIDE 0.9% 50 ML IV PRN (08:41)
[2017-11-17] MEDS ORDERED: LOPERAMIDE 2 MG CAPSULE PO PRN ×2 (08:41)
[2017-11-17 08:48] LABS: Alanine Aminotransferase 21 U/L (16-61); Albumin 2.7 G/DL (3.4-5.0); Alkaline Phosphatase 84 U/L (45-117); Aspartate Amino Transferase 18 U/L (0-37); Bilirubin,Total < 0.39 MG/DL (0.2-1.0); Blood Urea Nitrogen 12 MG/DL (7-18); Calcium 8.6 MG/DL (8.5-10.1); Glucose 104 MG/DL (74-106); Osmolality,Calculated 278.4 MOS/KG (273-304); Potassium 4.2 MMOL/L (3.5-5.1); Sodium 140 MMOL/L (136-145); Total Protein 5.8 G/DL (6.4-8.3)
[2017-11-17] MEDS ORDERED: GRANISETRON 1 MG/1 ML VIAL IV ONE (09:30)
[2017-11-17] MEDS ORDERED: DEXAMETHASONE 10 MG/1 ML VIAL IV ONE (09:30)
[2017-11-17] MEDS ORDERED: PANITUMUMAB 400 MG in SODIUM CHLORIDE 0.9% 100 ML IV ONE (10:00)
[2017-11-17] MEDS ORDERED: IRINOTECAN IV ONE (10:00)
[2017-11-17] MEDS ORDERED: LEUCOVORIN INJ 600 MG in DEXTROSE 5% 250 ML IV ONE (10:00)
[2017-11-17] MEDS ORDERED: FLUOROURACIL IV ONE (10:00)
[2017-11-17] MEDS ORDERED: DEXTROSE 5% IV ONE (10:00)
[2017-11-17] MEDS ORDERED: FLUOROURACIL 1,500 MG in SODIUM CHLORIDE 0.9% 1,000 ML IV ONE (11:00)
[2017-11-17] MEDS: MAGNESIUM CHLORIDE 64 MG TABLET PO SCH (20:18)
[2017-11-17] MEDS: DOXYCYCLINE HYCLATE 100 MG CAPSULE PO SCH (20:18)
[2017-11-17] MEDS: POTASSIUM CHLORIDE 20 MEQ TABLET PO SCH (20:18)
[2017-11-18 01:17] LABS: Apearance,Urine CLEAR (Clear); Bilirubin,Urine Negative (Negative); Blood, Urine Negative (Negative); Glucose,Urine (UA) 50 mg/dL (Negative); Ketones,Urine Negative (Negative); Mucus,Urine Occasional /LPF (Occasional); Nitrite,Urine Negative (Negative); Protein,Urine Negative; RBC,Urine 1 /HPF (0-4); Squamous Epithelial Cell,Urine Occasional /HPF (0-10); Urine Color Yellow (Yellow); Urine Specific Gravity 1.018 (1.001-1.035); Urine Urobilinogen < 2.0 EU/DL (0.2-1.0); WBC,Urine 2 /HPF (0-6)
[2017-11-18] MEDS ORDERED: predniSONE 20 MG TABLET PO SCH (07:30)
[2017-11-18] MEDS ORDERED: FERROUS SULFATE 325 MG TABLET PO SCH (08:00)
[2017-11-18] MEDS: POTASSIUM CHLORIDE 20 MEQ TABLET PO SCH (09:46)
[2017-11-18] MEDS: MAGNESIUM CHLORIDE 64 MG TABLET PO SCH (09:46)
[2017-11-18] MEDS: DOXYCYCLINE HYCLATE 100 MG CAPSULE PO SCH (09:47)
[2017-11-18] MEDS ORDERED: HEPARIN LOCK FLUSH 500 UNIT/5 ML SYRINGE IV ONE (12:52)
[2017-11-18 14:09] VITALS: BP 156/78
== END 2017-11-18 13:10 | disposition home or self-care (01) ==
LOC: N.4E
PROVIDERS: ADMIT Specialist; ATTEND Specialist

== ENCOUNTER 2017-12-08 07:00 | Observation (INO) ==
[2017-12-08 08:07] LABS: Basophils % 0.4 % (0.0-0.8); Eosinophils % 0.5 % (0.00-10.9); Hematocrit 36.8 VOL% (42.0-52.0); Hemoglobin 12.2 GM/DL (14.0-18.0); Immature Granulocytes % 0.5 %; Immature Granulocytes Absolute 0.03 #; Lymphocytes # 0.8 10*3/uL (1.4-4.0); Lymphocytes % 15.3 % (21.2-54.2); Mean Corpuscular HGB Conc 33.2 GM/DL (32-36); Mean Corpuscular Hemoglobin 29 PG (27-34); Mean Corpuscular Volume 88.7 FL (87-102); Mean Platelet Volume 9.1 FL (9.6-12.0); Monocytes % 18.8 % (1.7-12.7); Neutrophils # 3.5 10*3/uL (1.4-7.4); Neutrophils % 64.5 % (38.7-73.9); Platelet Count 157 T/CUMM (130-400); Red Blood Count 4.15 MC/CUMM (3.8-5.5); Red Cell Distribution Width 14.5 % (9.3-17.3); White Blood Count 5.5 T/CUMM (4-12)
[2017-12-08 08:24] LABS: Bilirubin,Total 0.4 MG/DL (0.2-1.0); Calcium 8.8 MG/DL (8.5-10.1); Osmolality,Calculated 275.5 MOS/KG (273-304); Potassium 4.2 MMOL/L (3.5-5.1); Total Protein 6.7 G/DL (6.4-8.3)
[2017-12-08 08:26] LABS: Uric Acid 3.5 MG/DL (3.5-7.2)
[2017-12-08 08:44] LABS: Band Neutrophils 15 % (0-10); Lymphocytes 8 % (20-55); Macrocytosis Slight; Platelet Estimate Normal; Segmented Neutrophils 60 % (50-85); Total Cells Counted 100
[2017-12-08 12:55] LABS: Apearance,Urine CLEAR (Clear); Bacteria,Urine Occasional /HPF (Few); Bilirubin,Urine Negative (Negative); Blood, Urine Small mg/dL (Negative); Glucose,Urine (UA) Negative (Negative); Ketones,Urine Negative (Negative); Mucus,Urine Occasional /LPF (Occasional); Nitrite,Urine Negative (Negative); Protein,Urine Negative; RBC,Urine <1 /HPF (0-4); Squamous Epithelial Cell,Urine Occasional /HPF (0-10); Urine Color Yellow (Yellow); Urine Specific Gravity 1.014 (1.001-1.035); Urine Urobilinogen < 2.0 EU/DL (0.2-1.0); WBC,Urine 1 /HPF (0-6)
[2017-12-10 10:00] VITALS: BP 125/87
== END 2017-12-10 10:33 | disposition home or self-care (01) ==
LOC: N.4E
PROVIDERS: ADMIT Specialist; ATTEND Specialist

== ENCOUNTER 2017-12-29 08:00 | Observation (INO) ==
[2017-12-29 09:19] LABS: Basophils % 0.4 % (0.0-0.8); Eosinophils # 0.1 10*3/uL (0.0-0.87); Eosinophils % 1.1 % (0.00-10.9); Hematocrit 35.2 VOL% (42.0-52.0); Hemoglobin 11.9 GM/DL (14.0-18.0); Immature Granulocytes % 0.6 %; Immature Granulocytes Absolute 0.03 #; Lymphocytes # 0.6 10*3/uL (1.4-4.0); Lymphocytes % 13.2 % (21.2-54.2); Mean Corpuscular HGB Conc 33.8 GM/DL (32-36); Mean Corpuscular Hemoglobin 30 PG (27-34); Mean Platelet Volume 8.6 FL (9.6-12.0); Monocytes # 0.9 10*3/uL (0.11-0.8); Neutrophils % 64.7 % (38.7-73.9); Platelet Count 163 T/CUMM (130-400); Red Cell Distribution Width 13.4 % (9.3-17.3); White Blood Count 4.7 T/CUMM (4-12)
[2017-12-29 09:47] LABS: Alanine Aminotransferase 22 U/L (16-61); Albumin 2.9 G/DL (3.4-5.0); Alkaline Phosphatase 93 U/L (45-117); Aspartate Amino Transferase 17 U/L (0-37); Bilirubin,Total < 0.39 MG/DL (0.2-1.0); Blood Urea Nitrogen 14 MG/DL (7-18); Calcium 8.9 MG/DL (8.5-10.1); Glucose 96 MG/DL (74-106); Osmolality,Calculated 275.7 MOS/KG (273-304); Potassium 4.4 MMOL/L (3.5-5.1); Sodium 138 MMOL/L (136-145); Total Protein 6.2 G/DL (6.4-8.3); Uric Acid 4.3 MG/DL (3.5-7.2)
[2017-12-29 10:38] LABS: Band Neutrophils 1 % (0-10); Lymphocytes 10 % (20-55); Segmented Neutrophils 75 % (50-85); Total Cells Counted 100
[2017-12-29 10:39] LABS: Hypochromasia Slight; Microcytosis Slight
[2017-12-29 10:53] LABS: Platelet Estimate Adequate
[2017-12-29] MEDS ORDERED: FLUOROURACIL IV ONE (12:00)
[2017-12-29] MEDS ORDERED: DEXTROSE 5% IV ONE (12:00)
[2017-12-29] MEDS ORDERED: LEUCOVORIN INJ 600 MG in DEXTROSE 5% 250 ML IV ONE (12:00)
[2017-12-29] MEDS ORDERED: IRINOTECAN IV ONE (12:00)
[2017-12-29] MEDS ORDERED: PANITUMUMAB 400 MG in SODIUM CHLORIDE 0.9% 100 ML IV ONE (12:00)
[2017-12-29] MEDS ORDERED: FLUOROURACIL 1,500 MG in SODIUM CHLORIDE 0.9% 1,000 ML IV SCH (12:30)
[2017-12-29] MEDS: GRANISETRON 1 MG/1 ML VIAL IV SCH (13:15)
[2017-12-29] MEDS: DEXAMETHASONE INJ 10 MG in SODIUM CHLORIDE 0.9% 50 ML IV SCH (13:15)
[2017-12-29 21:35] LABS: Apearance,Urine CLEAR (Clear); Bilirubin,Urine Negative (Negative); Blood, Urine Negative (Negative); Glucose,Urine (UA) Negative (Negative); Ketones,Urine Negative (Negative); Nitrite,Urine Negative (Negative); Protein,Urine Negative; RBC,Urine 1 /HPF (0-4); Urine Color Straw (Yellow); Urine Specific Gravity 1.009 (1.001-1.035); Urine Urobilinogen < 2.0 EU/DL (0.2-1.0); WBC,Urine 1 /HPF (0-6)
[2017-12-30] MEDS: GRANISETRON 1 MG/1 ML VIAL IV SCH (09:34)
[2017-12-30] MEDS: DEXAMETHASONE INJ 10 MG in SODIUM CHLORIDE 0.9% 50 ML IV SCH (09:37)
[2017-12-30 13:26] VITALS: BP 124/63
[2017-12-30] MEDS ORDERED: HEPARIN LOCK FLUSH 500 UNIT/5 ML SYRINGE IV ONE (16:19)
== END 2017-12-30 17:07 | disposition home or self-care (01) ==
LOC: N.4E
PROVIDERS: ADMIT Specialist; ATTEND Specialist

== ENCOUNTER 2018-01-20 07:00 | Observation (INO) ==
[2018-01-20 13:09] LABS: Basophils % 0.2 % (0.0-0.8); Eosinophils # 0.2 10*3/uL (0.0-0.87); Eosinophils % 4.2 % (0.00-10.9); Hematocrit 35.8 VOL% (42.0-52.0); Immature Granulocytes % 0.5 %; Immature Granulocytes Absolute 0.02 #; Lymphocytes # 0.9 10*3/uL (1.4-4.0); Lymphocytes % 22.4 % (21.2-54.2); Mean Corpuscular HGB Conc 33.5 GM/DL (32-36); Mean Corpuscular Hemoglobin 30 PG (27-34); Mean Corpuscular Volume 88.2 FL (87-102); Mean Platelet Volume 8.8 FL (9.6-12.0); Monocytes # 0.6 10*3/uL (0.11-0.8); Monocytes % 13.5 % (1.7-12.7); Neutrophils # 2.4 10*3/uL (1.4-7.4); Neutrophils % 59.2 % (38.7-73.9); Platelet Count 146 T/CUMM (130-400); Red Blood Count 4.06 MC/CUMM (3.8-5.5); White Blood Count 4.1 T/CUMM (4-12)
[2018-01-20 13:26] LABS: Alanine Aminotransferase 20 U/L (16-61); Albumin 3.1 G/DL (3.4-5.0); Alkaline Phosphatase 93 U/L (45-117); Aspartate Amino Transferase 20 U/L (0-37); Bilirubin,Total < 0.39 MG/DL (0.2-1.0); Blood Urea Nitrogen 14 MG/DL (7-18); Calcium 8.4 MG/DL (8.5-10.1); Glucose 138 MG/DL (74-106); Osmolality,Calculated 277.7 MOS/KG (273-304); Sodium 138 MMOL/L (136-145); Total Protein 6.3 G/DL (6.4-8.3)
[2018-01-20] MEDS ORDERED: FLUOROURACIL IV ONE (15:00)
[2018-01-20] MEDS ORDERED: DEXAMETHASONE 10 MG/1 ML VIAL IV ONE (15:00)
[2018-01-20] MEDS ORDERED: IRINOTECAN IV ONE (15:00)
[2018-01-20] MEDS ORDERED: PANITUMUMAB 400 MG in SODIUM CHLORIDE 0.9% 100 ML IV ONE (15:00)
[2018-01-20] MEDS ORDERED: GRANISETRON 1 MG/1 ML VIAL IV ONE (15:00)
[2018-01-20] MEDS ORDERED: FLUOROURACIL 1,500 MG in SODIUM CHLORIDE 0.9% 1,000 ML IV SCH (15:00)
[2018-01-20] MEDS ORDERED: LEUCOVORIN INJ 600 MG in DEXTROSE 5% 250 ML IV ONE (15:00)
[2018-01-20] MEDS ORDERED: DEXTROSE 5% IV ONE (15:00)
[2018-01-21 10:14] LABS: Basophils % 0.1 % (0.0-0.8); Hemoglobin 12.7 GM/DL (14.0-18.0); Immature Granulocytes % 0.6 %; Immature Granulocytes Absolute 0.05 #; Lymphocytes # 0.5 10*3/uL (1.4-4.0); Lymphocytes % 6.5 % (21.2-54.2); Mean Corpuscular HGB Conc 33.4 GM/DL (32-36); Mean Corpuscular Hemoglobin 29 PG (27-34); Mean Corpuscular Volume 86.4 FL (87-102); Mean Platelet Volume 8.8 FL (9.6-12.0); Monocytes # 0.4 10*3/uL (0.11-0.8); Monocytes % 4.4 % (1.7-12.7); Neutrophils # 7.4 10*3/uL (1.4-7.4); Neutrophils % 88.4 % (38.7-73.9); Platelet Count 160 T/CUMM (130-400); Red Cell Distribution Width 13.3 % (9.3-17.3); White Blood Count 8.3 T/CUMM (4-12)
[2018-01-21 10:32] LABS: Albumin 2.8 G/DL (3.4-5.0); Bilirubin,Total 0.4 MG/DL (0.2-1.0); Calcium 8.6 MG/DL (8.5-10.1); Osmolality,Calculated 279.7 MOS/KG (273-304); Potassium 3.7 MMOL/L (3.5-5.1); Total Protein 6.1 G/DL (6.4-8.3)
[2018-01-21 16:42] VITALS: BP 134/76
[2018-01-21] MEDS ORDERED: HEPARIN LOCK FLUSH 500 UNIT/5 ML SYRINGE IV ONE (17:59)
== END 2018-01-21 18:30 | disposition home or self-care (01) ==
LOC: N.4E 07:34 → INTOOBSV 07:34
PROVIDERS: ADMIT Specialist; ATTEND Specialist

== ENCOUNTER 2018-02-17 06:54 | Observation (INO) ==
[2018-02-17 07:47] LABS: Basophils % 0.3 % (0.0-0.8); Eosinophils # 0.1 10*3/uL (0.0-0.87); Eosinophils % 1.3 % (0.00-10.9); Hematocrit 35.6 VOL% (42.0-52.0); Hemoglobin 11.8 GM/DL (14.0-18.0); Immature Granulocytes % 0.3 %; Immature Granulocytes Absolute 0.01 #; Lymphocytes # 0.9 10*3/uL (1.4-4.0); Lymphocytes % 22.7 % (21.2-54.2); Mean Corpuscular HGB Conc 33.1 GM/DL (32-36); Mean Corpuscular Hemoglobin 29 PG (27-34); Mean Corpuscular Volume 87.7 FL (87-102); Mean Platelet Volume 8.6 FL (9.6-12.0); Monocytes # 0.6 10*3/uL (0.11-0.8); Monocytes % 15.9 % (1.7-12.7); Neutrophils # 2.4 10*3/uL (1.4-7.4); Neutrophils % 59.5 % (38.7-73.9); Platelet Count 134 T/CUMM (130-400); Red Blood Count 4.06 MC/CUMM (3.8-5.5); Red Cell Distribution Width 14.6 % (9.3-17.3)
[2018-02-17 08:05] LABS: Alanine Aminotransferase 20 U/L (16-61); Albumin 3.4 G/DL (3.4-5.0); Alkaline Phosphatase 94 U/L (45-117); Aspartate Amino Transferase 17 U/L (0-37); Bilirubin,Total < 0.39 MG/DL (0.2-1.0); Blood Urea Nitrogen 8 MG/DL (7-18); Calcium 8.6 MG/DL (8.5-10.1); Glucose 107 MG/DL (74-106); Osmolality,Calculated 276.4 MOS/KG (273-304); Potassium 3.7 MMOL/L (3.5-5.1); Sodium 140 MMOL/L (136-145); Total Protein 6.7 G/DL (6.4-8.3); Uric Acid 3.8 MG/DL (3.5-7.2)
[2018-02-17 08:28] LABS: Eosinophils 2 % (0-10); Hypochromasia 1+; Lymphocytes 27 % (20-55); Ovalocytes Slight; Platelet Estimate Normal; Segmented Neutrophils 51 % (50-85); Total Cells Counted 100
[2018-02-17] MEDS ORDERED: GRANISETRON 1 MG/1 ML VIAL IV ONE (08:30)
[2018-02-17] MEDS ORDERED: diphenhydrAMINE 50 MG/1 ML VIAL IV ONE (08:30)
[2018-02-17] MEDS ORDERED: DEXAMETHASONE 10 MG/1 ML VIAL IV ONE (08:30)
[2018-02-17] MEDS ORDERED: PANITUMUMAB 400 MG in SODIUM CHLORIDE 0.9% 100 ML IV ONE (08:30)
[2018-02-17] MEDS ORDERED: IRINOTECAN IV ONE (08:30)
[2018-02-17] MEDS ORDERED: LEUCOVORIN INJ 600 MG in DEXTROSE 5% 250 ML IV ONE (08:30)
[2018-02-17] MEDS ORDERED: DEXTROSE 5% IV ONE (08:30)
[2018-02-17] MEDS ORDERED: FLUOROURACIL IV ONE (08:30)
[2018-02-17] MEDS ORDERED: FLUOROURACIL 1,500 MG in SODIUM CHLORIDE 0.9% 1,000 ML IV SCH (09:00)
[2018-02-17 09:26] LABS: Carcinoembryonic Antigen 1.6 NG/ML (0.0-5.0)
[2018-02-17 14:48] LABS: Apearance,Urine CLEAR (Clear); Bilirubin,Urine Negative (Negative); Blood, Urine Small mg/dL (Negative); Glucose,Urine (UA) Negative (Negative); Ketones,Urine Negative (Negative); Mucus,Urine Occasional /LPF (Occasional); Nitrite,Urine Negative (Negative); Protein,Urine Negative; RBC,Urine 2 /HPF (0-4); Urine Color Yellow (Yellow); Urine Specific Gravity 1.015 (1.001-1.035); Urine Urobilinogen < 2.0 EU/DL (0.2-1.0); WBC,Urine <1 /HPF (0-6)
[2018-02-18 11:18] VITALS: BP 126/79
== END 2018-02-18 15:26 | disposition home or self-care (01) ==
LOC: INTOOBSV 06:54 → N.4E 06:54
PROVIDERS: ADMIT Specialist; ATTEND Specialist

== ENCOUNTER → 2019-12-31 15:54 | Observation (INO) ==
[2019-12-28 01:07] LABS: Basophils % 0.2 % (0.0-0.8); Eosinophils % 0.2 % (0.00-10.9); Hematocrit 38.1 VOL% (42.0-52.0); Hemoglobin 12.7 GM/DL (14.0-18.0); Immature Granulocytes % 4.4 %; Immature Granulocytes Absolute 0.44 #; Lymphocytes # 0.8 10*3/uL (1.4-4.0); Lymphocytes % 7.6 % (21.2-54.2); Mean Corpuscular HGB Conc 33.3 GM/DL (32-36); Mean Corpuscular Volume 91.6 FL (87-102); Mean Platelet Volume 8.6 FL (9.6-12.0); Monocytes % 14.2 % (1.7-12.7); Neutrophils % 73.4 % (38.7-73.9); Platelet Count 117 T/CUMM (130-400); Red Blood Count 4.16 MC/CUMM (3.8-5.5)
[2019-12-28 01:21] LABS: Albumin 2.6 G/DL (3.4-5.0); Bilirubin,Total 1.2 MG/DL (0.2-1.0); Calcium 9.9 MG/DL (8.5-10.1); Osmolality,Calculated 274.1 MOS/KG (273-304); Total Protein 7.1 G/DL (6.4-8.3)
[2019-12-28 01:44] LABS: Ferritin 1969.2 ng/ml (26-388)
[2019-12-28 01:59] LABS: Apearance,Urine Slightly Hazy (Clear); Bilirubin,Urine Negative (Negative); Blood, Urine Moderate mg/dL (Negative); Glucose,Urine (UA) Negative (Negative); Hyaline Casts,Urine 2 /LPF (0-3); Ketones,Urine Negative (Negative); Mucus,Urine Few /LPF (Occasional); Nitrite,Urine Negative (Negative); Protein,Urine 100 MG/DL; RBC,Urine 8 /HPF (0-4); Squamous Epithelial Cell,Urine Occasional /HPF (0-10); Urine Color Amber (Yellow); Urine Specific Gravity 1.029 (1.001-1.035); WBC,Urine 3 /HPF (0-6)
[2019-12-28] MEDS: MEROPENEM 1,000 MG in SODIUM CHLORIDE 0.9% 100 ML IV SCH ×2 (10:21→17:58)
[2019-12-28] MEDS: LEVOFLOXACIN INJ 750 MG in PREMIX 1 EACH IV SCH (10:21)
[2019-12-29] MEDS: MEROPENEM 1,000 MG in SODIUM CHLORIDE 0.9% 100 ML IV SCH ×3 (03:07→17:17)
[2019-12-29 06:05] LABS: Basophils % 0.1 % (0.0-0.8); Hematocrit 34.9 VOL% (42.0-52.0); Hemoglobin 11.6 GM/DL (14.0-18.0); Immature Granulocytes % 2.5 %; Immature Granulocytes Absolute 0.25 #; Lymphocytes # 0.6 10*3/uL (1.4-4.0); Lymphocytes % 6.2 % (21.2-54.2); Mean Corpuscular HGB Conc 33.2 GM/DL (32-36); Mean Corpuscular Volume 90.9 FL (87-102); Mean Platelet Volume 9.2 FL (9.6-12.0); Monocytes % 5.6 % (1.7-12.7); Neutrophils % 85.6 % (38.7-73.9); Platelet Count 105 T/CUMM (130-400); Red Blood Count 3.84 MC/CUMM (3.8-5.5); Red Cell Distribution Width 18.7 % (9.3-17.3); White Blood Count 10.1 T/CUMM (4-12)
[2019-12-29 06:24] LABS: Hypochromasia Slight; Platelet Estimate Decreased
[2019-12-29 06:42] LABS: Alanine Aminotransferase 32 U/L (16-61); Albumin 2.1 G/DL (3.4-5.0); Alkaline Phosphatase 111 U/L (45-117); Aspartate Amino Transferase 115 U/L (0-37); Blood Urea Nitrogen 23 MG/DL (7-18); Calcium 9.5 MG/DL (8.5-10.1); Estimated Glom Filtration Rate 73 ML/MIN; Glucose 127 MG/DL (74-106); Total Protein 6.5 G/DL (6.4-8.3)
[2019-12-29 06:43] LABS: Osmolality,Calculated 278.8 MOS/KG (273-304); Uric Acid 5.3 MG/DL (3.5-7.2)
[2019-12-29] MEDS: POTASSIUM CHLORIDE 20 MEQ TABLET PO SCH ×2 (09:10→20:54)
[2019-12-29] MEDS: MAGNESIUM CHLORIDE 64 MG TABLET PO SCH ×2 (09:10→20:53)
[2019-12-29] MEDS: MEGESTROL 400 MG/10 ML UDCUP PO SCH ×2 (09:10→20:54)
[2019-12-29] MEDS: LEVOFLOXACIN INJ 750 MG in PREMIX 1 EACH IV SCH (10:46)
[2019-12-29] MEDS: SODIUM CHLORIDE 0.9% 1,000 ML IV SCH ×2 (17:17→17:34)
[2019-12-30] MEDS: SODIUM CHLORIDE 0.9% 1,000 ML IV SCH ×3 (01:33→21:15)
[2019-12-30] MEDS: MEROPENEM 1,000 MG in SODIUM CHLORIDE 0.9% 100 ML IV SCH ×3 (01:33→17:42)
[2019-12-30 06:05] LABS: Basophils % 0.1 % (0.0-0.8); Hematocrit 32.8 VOL% (42.0-52.0); Immature Granulocytes % 1.5 %; Immature Granulocytes Absolute 0.13 #; Lymphocytes # 0.6 10*3/uL (1.4-4.0); Lymphocytes % 6.6 % (21.2-54.2); Mean Corpuscular HGB Conc 33.5 GM/DL (32-36); Mean Corpuscular Volume 92.9 FL (87-102); Mean Platelet Volume 9.2 FL (9.6-12.0); Monocytes % 3.8 % (1.7-12.7); Platelet Count 109 T/CUMM (130-400); Red Blood Count 3.53 MC/CUMM (3.8-5.5); Red Cell Distribution Width 18.9 % (9.3-17.3); White Blood Count 8.7 T/CUMM (4-12)
[2019-12-30 07:11] LABS: Albumin 1.8 G/DL (3.4-5.0); Bilirubin,Total 1.5 MG/DL (0.2-1.0); Calcium 8.9 MG/DL (8.5-10.1); Uric Acid 4.7 MG/DL (3.5-7.2)
[2019-12-30] MEDS: MAGNESIUM CHLORIDE 64 MG TABLET PO SCH ×2 (08:26→20:52)
[2019-12-30] MEDS: POTASSIUM CHLORIDE 20 MEQ TABLET PO SCH ×2 (08:27→20:52)
[2019-12-30] MEDS: MEGESTROL 400 MG/10 ML UDCUP PO SCH ×2 (08:27→20:52)
[2019-12-30] MEDS: LEVOFLOXACIN INJ 750 MG in PREMIX 1 EACH IV SCH (09:44)
[2019-12-31] MEDS: MEROPENEM 1,000 MG in SODIUM CHLORIDE 0.9% 100 ML IV SCH ×2 (01:16→09:55)
[2019-12-31 06:06] LABS: Basophils % 0.1 % (0.0-0.8); Eosinophils % 0.2 % (0.00-10.9); Hematocrit 33.1 VOL% (42.0-52.0); Hemoglobin 10.6 GM/DL (14.0-18.0); Immature Granulocytes % 1.7 %; Immature Granulocytes Absolute 0.14 #; Lymphocytes # 0.6 10*3/uL (1.4-4.0); Lymphocytes % 7.7 % (21.2-54.2); Mean Corpuscular Volume 95.7 FL (87-102); Mean Platelet Volume 8.8 FL (9.6-12.0); Neutrophils % 88.3 % (38.7-73.9); Platelet Count 114 T/CUMM (130-400); Red Blood Count 3.46 MC/CUMM (3.8-5.5); Red Cell Distribution Width 19.1 % (9.3-17.3); White Blood Count 8.2 T/CUMM (4-12)
[2019-12-31 06:40] LABS: Calcium 8.7 MG/DL (8.5-10.1)
[2019-12-31] MEDS: MEGESTROL 400 MG/10 ML UDCUP PO SCH (09:52)
[2019-12-31] MEDS: MAGNESIUM CHLORIDE 64 MG TABLET PO SCH (09:53)
[2019-12-31] MEDS: POTASSIUM CHLORIDE 20 MEQ TABLET PO SCH (09:53)
[2019-12-31] MEDS: LEVOFLOXACIN INJ 750 MG in PREMIX 1 EACH IV SCH (09:55)
[2019-12-31 12:27] VITALS: BP 121/76
[~2019-12-31 15:54] MED LIST: ACETAMINOPHEN 325 MG TABLET PO PRN; ALPRAZolam 0.25 MG TABLET PO PRN; ALUMINUM/MAGNES/SIMETH MAX STR 30 ML UDCUP PO PRN; CYANOCOBALAMIN 1000 MCG/1 ML VIAL IM ONE; DEXAMETHASONE 10 MG/1 ML VIAL IV ONE; FLUOROURACIL IV SCH; FOLIC ACID 1 MG TABLET PO SCH; GRANISETRON 1 MG/1 ML VIAL IV ONE; HEPARIN LOCK FLUSH 500 UNIT/5 ML SYRINGE IV ONE; LACTULOSE 20 GM/30 ML UDCUP PO PRN; LEUCOVORIN INJ 600 MG in DEXTROSE 5% 250 ML IV ONE; LOPERAMIDE 2 MG CAPSULE PO PRN; MAGNESIUM HYDROXIDE SUSP 30 ML UDCUP PO PRN; MYLANTA/LIDO VISC 2:1 300 ML BOTTLE SWISH/SPIT PRN; MYLANTA/LIDO VISC 2:1 300 ML BOTTLE SWISH/SWAL PRN; ONDANSETRON 4 MG/2 ML VIAL IV PRN; PANITUMUMAB 400 MG in SODIUM CHLORIDE 0.9% 100 ML IV ONE; PROMETHAZINE INJ 25 MG in SODIUM CHLORIDE 0.9% 50 ML IV PRN; SODIUM CHLORIDE 0.9% IV SCH; TEMAZEPAM 7.5 MG CAPSULE PO PRN; diphenhydrAMINE CAP 25 MG CAPSULE PO PRN; guaiFENesin 200 MG/10 ML UDCUP PO PRN; traMADol 50 MG TABLET PO PRN
== END | disposition home or self-care (01) ==
LOC: N.4E
PROVIDERS: ADMIT Specialist; ATTEND Specialist